=== PATIENT | male | born 1955 | race Caucasian/White ===

== ENCOUNTER 2017-01-02 05:39 | Day surgery (SDC) | payer OTHER ==
[~2017-01-02] VITALS: Ht 190.5 cm; Wt 118.3 kg
[2017-01-02] MEDS ORDERED: Lidocaine PF 1% 30 mL Inj ONE (05:40)
[2017-01-02] MEDS ORDERED: Propofol 10,000 mCg/mL 20 mL Inj ONE (05:40)
[2017-01-02] MEDS ORDERED: fentaNYL-PF 50 mCg/mL 2 mL Inj ONE (05:40)
[2017-01-02] MEDS: Lactated Ringer's 1,000 ML IV SCH ×2 (05:42→07:00)
[2017-01-02] MEDS ORDERED: CeFAZolin Inj 2 gm / 50mL D5W IV ONE (05:50)
[2017-01-02 05:57] VITALS: BP 144/102; PULSE 68; RESP 17; O2SAT 97
[2017-01-02] MEDS ORDERED: CeFAZolin 2 Gm/50 mL D5W IV Premix IV ONE (06:00)
--- NOTE | 2017-01-02 07:08 | PCM.HPANE ---
Patient Data Date of Service: Jan 02, 2017 Surgeon Admitting Provider: Attending Provider:Wilbert Dolan MD Primary Care Physician:Arya Raymundo MD Other Provider:Mally Costello Anesthesia Reason for Visit Left Ring/Little Finger Masses Ht/WT & BMI Height (Feet): 6 Height (Inches): 3 Weight (Kilograms): 118.3 Body Mass Index 32.00 Allergies Coded Allergies: No Known Allergies (Unverified , 06/24/16) Past Anesthesia History Anesthesia History: Denies:: Abnormal Airway, Anesthesia Reactions ("didn't like how I felt after anes"), Difficult Intubation, Fam Anesthesia Reaction, Fam Malignant Hypertherm, Malignant Hyperthermia Diabetes History Hx Diabetes?: No MRSA MRSA: No Medications Hypertension Medication: No Home Meds Incl Beta Adrian: No Discontinued Reported Medications Multivitamin/Iron/Folic Acid (Centrum Complete Multivit Tab)1 Each Tablet1 Each PO DAILY 06/24/16 Calc/D3/Mag/Zn/Executive Services Administrator/[place] (Calcium 600 mg Plus Vit D Tab)1 Each Tablet1 Each PO DAILY 06/24/16 History HEENT History: Denies:: Abnormal Airway Cataracts Difficult Intubation Dysphagia Glaucoma Hearing Problem Teeth Condition: Broken Teeth Hx of Heart Problems?: Yes Cardiovascular History: Positive for:: Hypertension Denies:: AICD Abdominal Aortic Aneurism Atrial Fibrillation Cardiac Surgery Chest Pain Heart Murmur Irregular Heartbeat Pacemaker Valvular Heart Disease Hx of Respiratory Problem?: No Respiratory History: Positive for:: Pneumonia (remote hx of) Denies:: Asthma COPD Hemoptysis Oxygen Administration Tuberculosis Use of C-PAP Machine Use of Inhalers / NEBS Hx Neurologic Problems?: No Neurological History: Denies:: CVA Dementia Dizziness Headaches Multiple Sclerosis Parkinson's Disease Seizures TIA Hx of GI Problems?: No Gastrointestinal History: Positive for:: Heartburn (occasional ) Rectal Bleeding (BRB ) Denies:: Cirrhosis Diverticulitis Gall Bladder Disease Gastroesphageal Reflux Hepatitis Hiatal Hernia Liver Disease Hx of Problems?: No Genitourinary History: Denies:: Kidney Stones Urinary Tract Infection Male Hx: Denies:: Prostate Problems Scrotal Mass Testicular Surgery Skin History: Denies:: History Skin Disorders? Pressure Ulcers Hx Musculoskeletal Problems?: Yes Musculoskeletal History: Positive for:: Musculoskeletal Trauma (left ring/ little finger mass current admission problem) Osteoarthritis Denies:: Fibromyalgia Joint Replacement Myasthenia Gravis Systemic Lupus Hx of Psycho/Social Problems?: No Psycho Social History: Denies:: Anxiety Hx Depression Hx Surgeries?: Yes (submucosal resection colon polyp) Hx Any Other Health Problems?: Yes Other History: Denies:: Cancer Thyroid Disease History Blood Transfusions: Positive for:: Accept Blood Products? Denies:: Blood Transfusions Hx Diabetes: No Hx Alcohol Use: YesAlcoholic Drinks Per Day: 2-3 drinks eveningHx Substance Use: No Smoking Status: Former Smoker Have You Smoked inLast 12 mo: No Stop/Bang Treated for Sleep Apnea?: No Do You Have a CPAP Machine?: No S-Snoring: Do You Snore Loudly: Yes T-Tired: feel tired, fatigued: Yes O-Obsered: Observed not breath: Yes P-Blood Pressure: treated: No B- Body Mass Index > 35 kg/m2: No A- Age over 50: Yes N- Neck Large Circumference: No G- Gender Male: Yes OLAF Total Score: 5 OLAF Risk Assessment: High Risk, =/>3 Yes OLAF Category 4 OutPt Procedure: Yes Risk Assessment Category Category 1A: Patient has history of documented sleep apnea, and HAS NOT received any narcotic, sedative or anesthesia administration during this stay. Category 1B: Patient has history of documented sleep apnea, and HAS received any narcotic , sedative or anesthesia administration during this stay Category 2: Patient has SUSPECTED Obstructive Sleep Apnea, and HAS received any narcotic , sedative or anesthesia administration during this stay. Category 3: Patient has SUSPECTED Obstructive Sleep Apnea and HAS NOT received narcotic, sedative or anesthesia administration during this stay. Category 4: Outpatient in Procedural Areas with known sleep apnea or who screen positive for High Risk via the STOP/BANG questionnaire. Exam Exam Vital Signs Vital Signs Date Time Temp Pulse Resp B/P Pulse Ox O2 Delivery O2 Flow Rate FiO2 01/02/17 05:57 36.0 68 17 144/102 97 Room Air General Appearance: Alert, Oriented X3, Cooperative HEENT/AIRWAY: MP 3, Neck Movement (Full), Mouth Opening (Wide) Lungs: Clear to Auscultation, Normal Air Movement Heart: Regular Rate/Rhythm, Normal S1, Normal S2 Meds/Labs/Diagnostics Admission Meds Current Medications Lactated Ringer's (Lr) 1,000 ml @ 120 mls/hr Q8H20M IV Last administered on 2/ 3/17at 05:42; Start 01/02/17 at 05:00; Stop 01/02/17 at 13:19 Labs outside labs reviewed, Cr elevated slightly Plan Impression Patient chart reviewed, patient interviewed and anesthestic plan with risks, benefits, and alternatives discussed, and informed consent obtained. NPO Status: 1830 01/01/17 ASA Physical Status: ASA2 Mod Systemic Disease Anesthetic Plan: GA, MAC Bene/Risks/Altern/Consents: Yes HP Complete Prior to Induction: Yes Other GA vs MAC pending discussion with Darrick Arcos MD Jan 02, 2017 07:03
[2017-01-02] MEDS ORDERED: Bupivacaine-MPF 0.5% 30 mL Inj INFILTRATE ONE (07:36)
[2017-01-02] MEDS ORDERED: Lactated Ringer's 500 ML IV PRN (08:01)
[2017-01-02] MEDS ORDERED: Lactated Ringer's 1,000 ML IV SCH (08:01)
[2017-01-02] MEDS ORDERED: Dexamethasone 4 mg/mL Inj IVPUSH PRN (08:05)
[2017-01-02] MEDS ORDERED: Labetalol 5 mg/mL 4 mL Inj IV PRN (08:05)
[2017-01-02] MEDS ORDERED: Ondansetron 2 mg/mL 2 mL Inj IVPUSH PRN (08:05)
[2017-01-02] MEDS ORDERED: MetoCLOpramide 5 mg/mL 2 mL Inj IVPUSH PRN (08:05)
[2017-01-02] MEDS ORDERED: fentaNYL-PF 50 mCg/mL 2 mL Inj IVPUSH PRN (08:05)
[2017-01-02] MEDS ORDERED: Phenylephrine 10,000 mCg/mL Inj IVPUSH PRN (08:05)
[2017-01-02] MEDS ORDERED: EPHEDrine Sulfate 50 mg/mL Inj IVPUSH PRN (08:05)
[2017-01-02] MEDS ORDERED: Atropine 0.4 mg/mL Inj IVPUSH PRN (08:05)
[2017-01-02] MEDS ORDERED: HYDROmorphone 1 mg/mL Inj IVPUSH PRN (08:05)
[2017-01-02] MEDS ORDERED: hydrALAZINE 20 mg/mL Inj IVPUSH PRN (08:05)
--- NOTE | 2017-01-02 09:20 | PCM.ANEP1 ---
Post Anesthesia Phase 1 PACU Phase 1 Assessment Date of Service: Jan 02, 2017 Vital Signs Phase II - HR 57, O2 98% RA, RR 20, T 35.6, BP 161/96 Vital Signs Date Time Temp Pulse Resp B/P Pulse Ox O2 Delivery O2 Flow Rate FiO2 01/02/17 05:57 36.0 68 17 144/102 97 Room Air Anesthetic Administered: MAC Level of Alertness: Awake, talking MINER's with Equal Strength: Yes Pain: No Nausea or Vomiting: No Oxygen Delivery: Room Air Lungs: Normal Air Movement Darrick Moncada MD Jan 02, 2017 09:20
[2017-01-02 09:21] VITALS: BP 161/96; PULSE 58; RESP 16; O2SAT 98
[2017-01-02] MEDS ORDERED: oxyCODONE-Acetamin 5-325 mg Tablet PO PRN (09:30)
--- NOTE | 2017-01-02 09:53 | PCM.ANEP2 ---
Post Anesthesia Evaluation ASA/CMS Post Anesthesia Date of Service: Jan 02, 2017 VS in Patient's Normal Range?: Yes Resp Stable; Airway Patent?: Yes CV Function & Hydration Stable: Yes Mental Status Recovered?: Yes Pain control Satisfactory?: Yes N/V Control Satisfactory?: Yes Darrick Moncada MD Jan 02, 2017 09:53
[2017-01-02 10:05] VITALS: BP 166/108; PULSE 59; RESP 17; O2SAT 97
--- NOTE | 2017-01-02 15:34 | OP ---
[address] [address] OPERATIVE REPORT PATIENT: MAURO SHOOK : 1955 MR#: [id number] ADMIT: 01/02/2017 JOB ID: [id number] DATE OF SURGERY: 01/02/2017 PREOPERATIVE DIAGNOSIS(ES): Left ring and little finger dorsal soft tissue masses over the PIP joints. ICD 10 code R 22.32. POSTOPERATIVE DIAGNOSIS(ES): Left ring and little finger dorsal soft tissue masses over the PIP joints. ICD 10 code R 22.32. INTRAOPERATIVE FINDINGS: Masses most consistent with fibrous tissue adherent to the extensor tendon and involving an area down to the PIP joint. PROCEDURE: Removal of left ring and little finger dorsal masses over the extensor tendons and down to the PIP joint over the ring and little fingers. CPT code 71156 x2. SURGEON: Dr. Wilbert Dolan. ANESTHESIA: Metacarpal nerve blocks performed by surgeon and IV sedation by Anesthesia. ASSISTING: None. DRAINS: None. COMPLICATIONS: None. SPECIMEN: Sent to Pathology. INDICATIONS: This is a 61-year-old male that has multiple nodules over the left hand over each of the PIP joints most consistent with Katerina nodes consistent with some thickened fibrous tissue over the extensor tendons and secondary to some underlying arthritic changes. DESCRIPTION OF PROCEDURE: After appropriate time-out was called, I performed a metacarpal nerve block with 0.5% plain Marcaine. With additional IV anesthesia supplementation, a well-padded tourniquet was applied to the left upper extremity. Left arm was prepped and draped in a sterile fashion. The arm was elevated, exsanguinated, tourniquet inflated to 250 mmHg. A curvilinear incision was fashioned over the dorsal aspect of the left little finger. There was thickened skin over the area of the nodule. This was dissected from the nodule taking care to protect the extensor tendon. The soft tissue fibrous mass was surgically removed. It did extend down to the area between the central portion of the extensor tendon and the lateral band. The interval between those two was opened to the edge of the joint. The mass was removed and was sent to Pathology. Some of the extra skin over the dorsum of the finger was excised since once the mass was removed he had redundant skin. Attention was next turned to the dorsum of the left ring finger. The nodule there was slightly larger. A curvilinear incision was fashioned over the PIP joint. Care was taken to protect the extensor tendon. The mass measured at least 1 cm x 8 mm. It was carefully shelled off the extensor tendon and it was dissected down to the PIP joint. The interval between the central slip of the extensor tendon and the lateral band was identified and looped. Care was also taken to protect the central slip of the extensor tendon on both fingers during the dissection. That specimen was removed and sent to Pathology. Also a small portion of the redundant dorsal skin was excised. After the mass in the ring finger was removed, the wounds were irrigated with saline. The interval between the extensor tendon and central slip and the lateral band which was initially incised was repaired with some interrupted sutures of 3-0 Vicryl. The tourniquet was released. Minimal hemostasis required. The skin was closed on both fingers with interrupted horizontal mattress sutured of 4-0 nylon. Xeroform dry sterile dressings were applied and the patient was placed in a well-padded short-arm ulnar gutter splint. The patient was taken to recovery room in stable condition. Sponge and needle count correct and specimens were sent to Pathology. PLAN: The patient will be discharged to home. He needs to keep the wounds clean and dry. We will see him back in the office in two weeks. At that time should be able to remove his sutures. CC: [facility] CC: Bairon Kahn
--- NOTE | 2017-01-05 16:38 | PATH ---
SURGICAL PATHOLOGY Attending Physician:Sarah Espinosa CASE STATUS: Signed Out PATIENT NAME: MAURO SHOOK PID: [id number] : 1955 DATE COLLECTED:01/02/2017 17:54 SPECIMEN: Mass, NOS CLINICAL HISTORY: LEFT RING AND LITTLE FINGER MASSES FINAL DIAGNOSIS: LEFT RING AND LITTLE FINGER MASSES: FIBROMATOSIS. ICD10 code M72.9 GROSS DESCRIPTION: The specimen is received in one formalin filled container labeled with the patient's name, sublabeled "left ring and little ring finger masses" and consists of 3 frazier-white rough portions of tissue which aggregate to 1.1 x 0.6 x 0.4 CM. The 2 smallest pieces are inked blue and entirely submitted. The largest piece is inked black, trisected and totally submitted in the same cassette. 01/02/2017 DAC MICRO DESCRIPTION: See diagnosis. ICD-9 CODES: CPT CODES: 1: 80775 Electronically Signed Out Judith Guzmán MD [facility] [address], [place] [address] Technical component performed at [facility], [facility] [address], [place], [address]
== END 2017-01-02 23:59 | disposition home or self-care (01) ==
LOC: SAS 05:39
PROVIDERS: ATTEND Orthopaedic Surgery
DX: M72.9 Fibroblastic disorder, unspecified (principal); I10 Essential (primary) hypertension; Z87.891 Personal history of nicotine dependence; Z86.010 Personal history of colon polyps
CPT/HCPCS: 26160; J0690; J2250; J3010; J7120